=== PATIENT | female | born 1960 | race Caucasian/White ===

== ENCOUNTER → 2019-12-13 | Day surgery (SDC) | payer OTHER ==
[~2019-12-13] MED LIST: Phenylephrine 1% 10 MG/ML SDV IV ONE; Propofol 200 MG/20 ML SDV IV ONE; fentaNYL 100 MCG/2 ML SDV IV ONE
[2019-12-13] MEDS: Lactated Ringers 1,000 ML IV SCH (09:18)
[2019-12-13 11:22] VITALS: BP 158/88; PULSE 53
--- NOTE | 2019-12-16 08:18 | OR ---
DATE OF OPERATION: 12/13/2019 PREOPERATIVE DIAGNOSIS: 1. FAMILY HISTORY OF COLON CARCINOMA. 2. HISTORY OF POLYPS. POSTOPERATIVE DIAGNOSIS: 1. FAMILY HISTORY OF COLON CARCINOMA. 2. HISTORY OF POLYPS. SURGEON: Geoffrey Bloom MD PROCEDURE: FULL-LENGTH COLONOSCOPY WITH FORCEPS POLYP REMOVAL X1, SNARE POLYP REMOVAL X1. ANESTHESIA: MAC. COMPLICATIONS: None. SPECIMEN: 1. Small rectosigmoid polyp. 2. Larger villous polyp, rectal vault. FINDINGS: 1. Full-length colonoscopy. 2. Mild sigmoid diverticulosis. 3. Small hyperplastic polyp, 2 to 3 mm, rectosigmoid junction. 4. 1 cm villous polyp, rectal vault. RECOMMENDATIONS: Followup colonoscopy in 3 years. INDICATIONS: The patient has a family history of colon cancer in her mother. She had 3 villous lesions removed approximately 4 years ago. She is overdue for a followup scope. DESCRIPTION OF PROCEDURE: The patient was prepped and draped, placed in the left lateral decubitus position. A lubricated Olympus colonoscope was inserted and easily advanced to the cecum. Direct visualization of the ileocecal valve and appendiceal orifice was accomplished. The bowel prep was excellent. Upon withdrawal of the scope, the cecum, ascending, transverse, and descending colons were completely benign. The patient did have some mild scattered diverticula throughout the sigmoid area. In the rectosigmoid junction, the patient had a small 2 to 3 mm hyperplastic polyp removed in its entirety with forceps biopsy x2. The rectal vault showed a villous lesion along the haustral fold right in its midportion. We removed this with 2 separate snare removals as well as forceps biopsy to get it in its entirety. We ended up with an excellent result. There was minimal bleeding. Retroflexion of the scope in the rectum showed no anal lesions. Air was suctioned and the scope removed without complication. ALMAZ/CAESAR /[id number]
== END ==
LOC: CC.SDS 08:59
PROVIDERS: ATTEND Family Medicine
DX: Z12.11 Encounter for screening for malignant neoplasm of colon (principal); D12.7 Benign neoplasm of rectosigmoid junction; D12.8 Benign neoplasm of rectum; K57.30 Diverticulosis of large intestine without perforation or abscess without bleeding; Z80.0 Family history of malignant neoplasm of digestive organs; Z86.010 Personal history of colon polyps; Z98.890 Other specified postprocedural states; Z79.899 Other long term (current) drug therapy
CPT/HCPCS: 45385; J2370; J2704; J3010; J7120

== ENCOUNTER → 2022-11-18 | Day surgery (SDC) | payer OTHER ==
[~2022-11-18] MED LIST changes: +Midazolam 1 MG/ML 2 ML SDV ONE; -Phenylephrine 1% 10 MG/ML SDV IV ONE; -Propofol 200 MG/20 ML SDV IV ONE; +Propofol 200 MG/20 ML SDV ONE; -fentaNYL 100 MCG/2 ML SDV IV ONE; +fentaNYL 50 MCG/ML SDV ONE
[2022-11-18] MEDS: Lactated Ringers 1,000 ML IV SCH (08:30)
[2022-11-18 09:35] VITALS: BP 142/85; PULSE 54
== END ==
LOC: CC.SDS 07:35
PROVIDERS: ATTEND Family Medicine
DX: Z12.11 Encounter for screening for malignant neoplasm of colon (principal); D12.3 Benign neoplasm of transverse colon; D12.7 Benign neoplasm of rectosigmoid junction; K57.30 Diverticulosis of large intestine without perforation or abscess without bleeding; Z86.010 Personal history of colon polyps; Z80.0 Family history of malignant neoplasm of digestive organs; K62.89 Other specified diseases of anus and rectum; I10 Essential (primary) hypertension; Z88.8 Allergy status to other drugs, medicaments and biological substances; Z79.899 Other long term (current) drug therapy
CPT/HCPCS: J2250; J2704; J3010; J7120

== ENCOUNTER → 2023-05-12 | Day surgery (SDC) | payer OTHER ==
[~2023-05-12] MED LIST changes: +Ketamine 200 MG/20 ML MDV ONE; +Lactated Ringers 1,000 ML IV SCH; -Midazolam 1 MG/ML 2 ML SDV ONE
[2023-05-12 12:03] VITALS: BP 117/72; PULSE 57
== END ==
LOC: CC.SDS 06:52
PROVIDERS: ATTEND Family Medicine
DX: D12.3 Benign neoplasm of transverse colon (principal); D12.5 Benign neoplasm of sigmoid colon; D12.7 Benign neoplasm of rectosigmoid junction; D12.8 Benign neoplasm of rectum; K57.30 Diverticulosis of large intestine without perforation or abscess without bleeding; I10 Essential (primary) hypertension; Z88.8 Allergy status to other drugs, medicaments and biological substances; Z90.710 Acquired absence of both cervix and uterus; Z80.0 Family history of malignant neoplasm of digestive organs; Z79.899 Other long term (current) drug therapy
CPT/HCPCS: 00811; J2704; J3010; J3490; J7120

== ENCOUNTER 2025-07-23 09:27 | Day surgery (SDC) | payer OTHER ==
[2025-07-23] MEDS: Lactated Ringers 1,000 ML IV SCH (09:38)
[2025-07-23 15:19] VITALS: BP 128/79; PULSE 66
== END 2025-07-23 11:35 | disposition home or self-care (01) ==
LOC: CC.SDS 09:27
PROVIDERS: ATTEND Family Medicine
DX: Z12.11 Encounter for screening for malignant neoplasm of colon (principal); K57.30 Diverticulosis of large intestine without perforation or abscess without bleeding; I10 Essential (primary) hypertension; Z80.0 Family history of malignant neoplasm of digestive organs; Z79.899 Other long term (current) drug therapy; Z86.0100 Personal history of colon polyps, unspecified
CPT/HCPCS: 45378; J7120